=== PATIENT | male | born 1980 | race African-American/Black ===

== ENCOUNTER 2016-05-11 14:54 | Inpatient (IN) | payer MEDICAID ==
--- NOTE | ~2016-05-11 | DS ---
Unit #: [id number] #: [id number] Patient: ELOY GE [id number] [place] [address] [id number] I MR#: [id number] NAME: ELOY GE ROOM: P207 Age: 35 Sex: M Admission Date: 05/11/2016 : 1980 Discharge Date: 05/15/2016 Attending Physician: Rosendo Banerjee M.D. Primary Care Physician: Primary Care Physician No DISCHARGE SUMMARY REASON FOR ADMISSION Acute deep depression with suicidal ideation and history of amphetamine stimulant dependency and cocaine abuse. DIAGNOSTIC STUDIES Pertinent laboratory data included, routine blood work, that included a CMP that was grossly within normal parameters. TSH normal at 0.52, T4, free T4 normal at 1.07. CBC that was fairly normal with the exception of hemoglobin slightly low at 12.6 and MCH of 27.9. Beyond that acceptable deviation is noted. Urine toxicology was positive for amphetamines. Urinalysis was grossly without exception of a slightly elevated urobilinogen of 1.0, but no other issues noted, no other tests performed. HOSPITAL COURSE The patient was admitted for safety and stabilization for ongoing issues with depression and substance abuse that were concerned for being compounding each other. The patient was started on Effexor XR titrated to 75 mg for depression and anxiety as well as Seroquel and it was titrated up to 150 mg at bedtime for sleep and further mood stabilization, also. During the hospital course, the patient went to groups and activities as directed. He reported tolerating the medications and the dosing changes therein. By the time of discharge, he was reporting that mood had improved. He was no longer having any suicidal ideation, thoughts about dying, or overt hopelessness. He had no evidence of any kind of detox complications about this hospitalization or behavioral problems. The patient followed directions by staff at all times. AT the time of discharge, the patient's plan was to follow up with community services through [facility] outpatient psychiatric clinic or go to [facility] with a plan to be discharged to the local residential system as he was homeless. Overall, the patient denied any other additional disposition needs at this point and there were no other acute issues to maintain the patient in the hospital further. He was granted discharge. DISCHARGE DIAGNOSES Bailey I Major depressive disorder, recurrent, severe, without psychotic features based on history of previous severe depressive episodes. Other stimulant dependency. Cocaine abuse. Bailey II Bailey III Unit #: [id number] #: [id number] Patient: ELOY GE Bailey IV Bailey V DISCHARGE PLAN Discharge plan is for the patient to be discharged today to a local residential system and information will be provided by social group worker. Follow up will be attempted at [facility] outpatient psychiatric clinic if cannot be maintained through [facility]. DISCHARGE MEDICATIONS Included: 1. Effexor XR 75 mg daily by mouth for depression and anxiety 2. Seroquel 150 mg at bedtime for mood stabilization and sleep CONDITION AT DISCHARGE Improved. PROGNOSIS Fair given that the patient can maintain sobriety. DIET AND ACTIVITY Diet is regular and activity as tolerated with sobriety encouraged. Dictated by... Rosendo Banerjee M.D. MANUEL/nkechi TD: 05/15/2016 08:53 JOB #: [id number] DISCHARGE SUMMARY Page 1 of 1 X Rosendo Banerjee MD X DISCHARGE SUMMARY
--- NOTE | ~2016-05-11 | PN ---
Unit #: [id number] #: [id number] Patient: ELOY GE [id number] [place] [address] [id number] I MR#: [id number] NAME: ELOY GE ROOM: P207 Age: 35 Sex: M Admission Date: 05/11/2016 : 1980 Attending Physician: Rosendo Banerjee M.D. Admitting Physician: Rosendo Banerjee M.D. Primary Care Physician: Maria Del Carmen Primary [facility] PRO[facility] NOTES DATE 05/13/2016 LOCATION [facility], [address] [place] [address], room #207, bed #1. SUBJECTIVE UPDATE This is a 35-year-old -[place]er male, here in the hospital with issues of significant depression, suicidal ideation and comorbid amphetamine dependency and cocaine abuse. The patient reports tolerating medication changes well but little to no benefit thus far. He has not, as of yet, gotten his daytime dose of Effexor due to an issue with documentation, but has been tolerating the doses that he did get well. The patient reports sleep last night was not very stable. Overall patient still complains of having vague suicidal ideation, hopelessness and general feeling of depression. Has been compliant per staff with no behavioral issues. No overt problems with any kind of withdrawals or cravings at this time. MENTAL STATUS EXAM GENERAL APPEARANCE: This is a moderately groomed -[place]er male, fairly pleasant and cooperative, responsive with moderate eye contact. Speech was clear and coherent, normal paucity. Mood was "depressed" with a congruent affect. Thought process and content are fairly organized and linear. No overt evidence of psychosis. Still positive for vague SI but no plan today. No active evidence of HI. Patient's memory is globally intact. He is alert and oriented x4. Associations are normal. Cognitive function seems to be at baseline. Insight and judgment is limited. RECOMMENDATIONS 1. Continue the patient's admission for safety and stabilization for ongoing issues with major depressive disorder, recurrent, severe, without psychotic features, amphetamine dependency and cocaine abuse. Patient continuing to show depressed mood with intermittent SI, decompensation without care. Will have patient given his daily dose of Effexor XR 37.5 mg now and increase it to 75 mg starting in the morning since he is tolerating it without side effect and will increase evening Seroquel to 150 mg scheduled since he did report poor sleep last night. 2. Will continue to encourage compliance with groups and activities and monitor progress. Unit #: [id number] #: [id number] Patient: ELOY GE 3. Will continue to work on disposition needs as patient's progress continues. Dictated by... Shubham Rivera/ivana TD: 05/15/2016 10:49 JOB #: [id number] [facility] PROGRESS NOTES Page 1 of 1 X Rosendo Banerjee MD X PROGRESS NOTE
--- NOTE | ~2016-05-11 | HP ---
Unit #: [id number] #: [id number] Patient: JOSE A GE [id number] [facility] [address] [place] [address] [id number] I MR#: [id number] NAME: JOSE A GE ROOM: P207 Age: 35 Sex: M Admission Date: 05/11/2016 : 1980 Attending Physician: Rosendo Banerjee M.D. Admitting Physician: Rosendo Banerjee M.D. Primary Care Physician: Primary Care Physician No HISTORY AND PHYSICAL HISTORY OF PRESENT ILLNESS Jose A is a 35 year old admitted to [address] [place] [address] with depression and verbalizing wanting to hurt himself. PAST MEDICAL HISTORY Nothing significant PAST SURGICAL HISTORY Nothing reported ALLERGIES No known drug allergies. SOCIAL HISTORY Smokes one pack per day. Drinks alcohol on occasion. Admits to marijuana and cocaine. FAMILY HISTORY Medically noncontributory. REVIEW OF SYSTEMS CONSTITUTIONAL: No fever or chills. HEENT: Denies any sore throat, ear pain or runny nose. CARDIOVASCULAR: Denies chest pain, irregular heart rhythm or palpitations. CHEST: Denies shortness of breath or cough. No hemoptysis. GASTROINTESTINAL: Denies nausea, vomiting, diarrhea or chronic constipation. ENDOCRINE: Denies history of increased thirst or urination. No recent significant weight loss or gain. GENITOURINARY: Denies dysuria, frequency, or hematuria. SKIN: Denies any rashes. HEMATOLOGIC: Denies history of increased bleeding or bruising. MUSCULOSKELETAL: Denies any hot, swollen joints. No generalized muscle pain. NEUROLOGIC: Denies problems with vision or speech. No frequent, severe headaches. No numbness, tingling or weakness in any extremities. Denies loss of bladder or bowel control. CURRENT MEDICATIONS No orders received at the time of this dictation. PHYSICAL EXAMINATION Unit #: [id number] #: [id number] Patient: JOSE A GE GENERAL: Alert, well-nourished, in no apparent distress. VITAL SIGNS: Blood pressure 120/70, heart rate 80, respirations 16, temperature 98.6. SKIN: Warm and dry without rash or lesion. HEENT: Normocephalic. TMs not viewed. Oral and nasal passages clear. Conjunctivae clear. Pupils equal, round and reactive to light and accommodation. Extraocular movements intact. NECK: Supple without lymphadenopathy or thyromegaly. HEART: Regular rate and rhythm without murmur. LUNGS: Clear. ABDOMEN: Soft, nontender. : Not done. EXTREMITIES: No evidence of cyanosis, clubbing or edema. Moves all extremities without focal deficit. NEUROLOGICAL: Grossly within normal limits. Cranial Nerves: II: Visual sanders are intact. III, IV AND : Extraocular movements are intact. Pupils are equal, round and reactive to light. V: Facial sensation is grossly normal. VII: Facial movements and expression are normal. VIII: Auditory acuity grossly intact. IX, X: Uvula is midline. Phonation is normal. XI: Patient shrugs shoulders and turns head normally. XII: Tongue protrudes in the midline. Sensory and Motor Function: Sensory and motor sensation is grossly normal. Motor: moves all extremities well. Coordination: Gait is normal. Deep Tendon Reflexes: Intact. IMPRESSION Psychiatric admission RECOMMENDATIONS PSYCHIATRIC: Per psychiatrist. MEDICAL: I see no contraindications to participating in facility's activities. MEDICAL PROGNOSIS Good. MEDICAL CONDITION Stable. Dictated by... Annie Mixon P.A.-C. for Shubham Erickson/lilly TD: 05/12/2016 03:55 JOB #: [id number] Unit #: [id number] #: [id number] Patient: JOSE A GE HISTORY AND PHYSICAL Page 1 of 1 X Annie Mixon HISTORY AND PHYSICAL
--- NOTE | ~2016-05-11 | PN ---
Unit #: [id number] #: [id number] Patient: ELOY GE [id number] [facility] [address] [place] [address] [id number] MR#: [id number] NAME: ELOY GE ROOM: P207 Age: 35 Sex: M Admission Date: 05/11/2016 : 1980 Attending Physician: Rosendo Banerjee M.D. Admitting Physician: Rosendo Banerjee M.D. Primary Care Physician: Primary Care Physician No [facility] PROGRESS NOTES DATE 05/14/2016 SUBJECTIVE UPDATE This is a 35-year-old male admitted to the hospital with issues of severe depression with suicidal ideation, chemical dependency of both amphetamines and cocaine abuse. The patient reports feeling better today that his mood is "improving." SI is resolving in terms of intermittency but is still occurring. He did report sleeping better last night. His affect did seem brighter today. The seems to be tolerating the medication changes well without any acute side effects. The patient has been going to groups and activities as directed. MENTAL STATUS EXAM GENERAL APPEARANCE: This is a moderately groomed male, fairly pleasant and cooperative, responsive to interview process. Speech was clear and coherent, normal paucity. Eye contact and general demeanor were improving. Mood was "better" less depressed anxious with a congruent affect. Thought process and content were organized and linear. No overt evidence of psychosis. SI still intermittent and improving but no plan or intent today. No HI no psychosis. The patient's memory was grossly intact. His associations are normal alert and oriented times four. Cognitive function seems to be at baseline. Insight and judgment is improving. RECOMMENDATIONS 1. Continue the patient's admission for resolving issues with suicidal ideation and depression as well as resolving chemical dependency detox issues. Overall the patient making good progress and most likely should be able to be disposition in the morning if progress continues and SI continues to ___. 2. The patient will most likely followup with community psychiatric resources and go to [facility] per our discussion today. Dictated by... Rosendo Banerjee M.D. MANUEL/lilly Unit #: [id number] #: [id number] Patient: ELOY GE TD: 05/18/2016 04:42 JOB #: [id number] [facility] PROGRESS NOTES Page 1 of 1 X Rosendo Banerjee MD PROGRESS NOTE
--- NOTE | ~2016-05-11 | PA ---
Unit #: [id number] #: [id number] Patient: ELOY GE [id number] [place] [address] [id number] I MR#: [id number] NAME: ELOY GE ROOM: P207 Age: 35 Sex: M Admission Date: 05/11/2016 : 1980 Date of Assessment: 05/12/2016 Attending Physician: Rosendo Banerjee M.D. Admitting Physician: Rosendo Banerjee M.D. Primary Care Physician: Primary Care Physician No PSYCHIATRIC ASSESSMENT LOCATION Our [address], room #207, bed #1. INFORMANTS The patient and chart, both seem reliable. CHIEF COMPLAINT "Just abusing drugs or I've to kill myself." HISTORY OF PRESENTING ILLNESS This is a 35-year-old, male, admitted with issues of severe depression, suicidal ideation, and problems with ongoing chemical dependency including mainly stimulants and cocaine. The patient reports that he has been doing this over the last 8 to 9 years. It has been getting increasingly worse. He has had no success with outpatient programs [facility] when he has been in the past and came here for additional options. He has continued to use amphetamines of late, but does have a history of cocaine use. He reports he has been having increasingly difficult problems with suicidal ideations and thoughts about dying and hopelessness. The patient reports having significant depression now, some sleep disturbance, but is reporting that the suicidal ideation still has a problem, but he is not voicing any clear plan at this time. The patient has been having all care options presently and has been compliant per staff. There are no symptoms that he complains of. Has been sleep disturbance, appetite changes, poor focus and concentration, anhedonia, hopelessness, and reports suicidal thoughts. PAST PSYCHIATRIC HISTORY Nothing of significance. In terms [facility] No previous psychiatric admissions according to the patient. No history of actual psychiatric medications either. No history of psychosis. FAMILY HISTORY Noncontributory. SOCIAL HISTORY The patient is single. Has no children. He has limited support through family and he is not sure where he is living when he leaves here. He essentially could be homeless. MEDICAL HISTORY Not significant. Unit #: [id number] #: [id number] Patient: ELOY GE MEDICATION HISTORY Nothing. ALLERGIES No known drug allergies. SUBSTANCE ABUSE HISTORY As noted above in terms of frequent daily cocaine and/or amphetamine use over the last several years. It is unclear there are many periods of sobriety, but CD treatment programs [facility] the [facility] have not been effective. MENTAL STATUS EXAMINATION General appearance; this is a moderately groomed male, appears stated age. Fairly cooperative, responsive to interview process. Speech was clear and coherent. Well prosody. Mood was "depressed" with a congruent affect. Thought process and content were grossly organized and linear. Vague SI still present, but no clear plan. No active HI or SI. The patient's memory was grossly intact. Associations were normal, alert and oriented x4. Cognitive function seems to be at baseline. Insight and judgment were poor. ASSETS Include previous exposure of the institutionalization with CD programs. LIABILITIES Include poor support. No current home, ongoing drug use, failure to maintain sobriety and unemployed. DIAGNOSTIC IMPRESSION 1. Major depressive disorder, recurrent, severe, without psychotic features. 2. Amphetamine dependency and cocaine abuse. PSYCHIATRIC PLAN Continue the patient's admission for safety, stabilization for depression and substance abuse related issues. The patient to be maintained on watch for signs of SI returning and to be treated accordingly. The patient is going to be started on Effexor 37.5 mg to help with his mood issues as well as maintain on the Seroquel at bedtime to help with sleep as he had positive response to that already. Treatment goal is for resolution of symptoms in control and safe manner. Discharge planning will involve outpatient resources as well as possible homeless senior care placement and then additional CD treatment if necessary. Estimated length of stay approximately 3 to 4 days depending on the patient's progress and response to treatment. Dictated by... Rosendo Banerjee M.D. SB/judith TD: 05/13/2016 04:49 Unit #: [id number] #: [id number] Patient: ELOY GE JOB #: [id number] PSYCHIATRIC ASSESSMENT Page 1 of 1 X Rosendo Banerjee MD X PSYCHIATRIC ASSESSMENT
[2016-05-12 09:44] LABS: BASOPHIL% 0.8 % (0-2.5); EOSINOPHIL# 0.1 X10e3 (0-0.7); EOSINOPHIL% 1.3 % (0.0-7.0); HEMATOCRIT 38.6 % (38.0-50.0); HEMOGLOBIN 12.6 gm/dL (13.0-16.0); LYMPHOCYTE# 2.4 X10e3 (1.0-3.5); LYMPHOCYTE% 49.7 % (17.0-45.0); MEAN CELL VOLUME 85.7 FL (83-96); MEAN CORPUSCULAR HEMOGLOBIN 27.9 PG (28-34); MEAN CORPUSCULAR HGB CONC 32.5 g/dL (30-36); MEAN PLATELET VOLUME 9.5 FL (6.5-11.5); MONOCYTE# 0.4 X10e3 (0-1.0); MONOCYTE% 7.8 % (3.0-12.0); NEUTROPHIL# 1.9 X10e3 (1.5-7.1); NEUTROPHIL% 40.4 % (40-75); RED BLOOD COUNT 4.51 X10e (3.90-5.60); RED CELL DISTRIBUTION WIDTH 13.7 % (11.0-15.5); WHITE BLOOD COUNT 4.7 X10e3 (4.0-10.5)
[2016-05-12 09:59] LABS: THYROID STIMULATING HORMONE 0.52 uIU/ml (0.34-5.60)
[2016-05-12 10:02] LABS: ALBUMIN SERUM 4.1 g/dL (3.5-5.0); BILIRUBIN,TOTAL 1.2 mg/dL (0.2-2.0); CALCIUM SERUM 9.5 mg/dL (8.4-10.2); GLOM FILT RATE Estimated 111.7 mL/min (>60); POTASSIUM 3.9 mmol/L (3.5-5.1)
[2016-05-12 10:03] LABS: DIFF IND NO; PLATELET COUNT 207 X10e3 (140-420)
[2016-05-12 10:08] LABS: FREE THYROXIN (T4) 1.07 ng/dL (0.58-1.64)
[2016-05-13 09:47] LABS: URINE APPEARANCE CLEAR; URINE BILIRUBIN NEG (NEG); URINE BLOOD NEG (NEG); URINE COLOR YELLOW; URINE GLUCOSE NEG (NEG); URINE KETONE NEG (NEG); URINE LEUKOCYTE ESTERASE NEG (NEG); URINE NITRATE NEG (NEG); URINE PH 5.5 (5-8); URINE PROTEIN NEG (NEG)
[2016-05-13 10:24] LABS: AMPHETAMINE POS (NEG); BARBITURATES NEG (NEG); BENZODIAZEPINES NEG (NEG); COCAINE NEG (NEG); MARIJUANA NEG (NEG); OPIATES NEG (NEG); TRICYCLIC ANTIDEPRESSANTS NEG (NEG); U METHADONE NEG (NEG)
== END 2016-05-15 17:06 | disposition home or self-care (01) | DRG 885 ==
LOC: P2S 14:54
PROVIDERS: Psychiatry & Neurology Psychiatry
DX: F33.2 Major depressive disorder, recurrent severe without psychotic features (principal); R45.851 Suicidal ideations; F15.10 Other stimulant abuse, uncomplicated; F14.10 Cocaine abuse, uncomplicated; F17.210 Nicotine dependence, cigarettes, uncomplicated
CPT/HCPCS: 80053; 80307; 81003; 84439; 84443; 85025